=== PATIENT | female | born 2000 | race Caucasian/White ===

== ENCOUNTER 2024-01-08 09:53 | Inpatient (IN) ==
--- NOTE | 2024-01-08 10:07 | Emergency Department Note ---
Impression & Plan Stroke-like symptoms, Neurological symptoms, GBS (Guillain-Brogan syndrome) ED Provider Note NAME: ALVAREZ ZALDIVAR AGE: 23 SEX: M : 2000 ARRIVES VIA: Ambulance INFORMANT: Patient, EMS ED PROVIDER(S): Scott Patterson DO CHIEF COMPLAINT: Weakness HPI: The patient is a 23-year-old male who presented to the emergency department for evaluation of generalized weakness. The patient does not have any significant past medical history. The patient states over the last couple days has been having increasing problems walking. The patient states that he has been having to hold onto the wall because he cannot stand up. He states this occurred approximately 2 days ago. He then started having right sided facial droop. He denies having any new foods. He denies having exposures to any illnesses. He denies having any tick bites. He has not been seen by provider prior to coming to the emergency department. The patient denies having any fever or vomiting. ROS: See above HPI for pertinent positives & negatives. A total of 10 systems reviewed and were otherwise negative. PAST MEDICAL HISTORY: See Below PAST SURGICAL HISTORY: See Below FAMILY HISTORY: See Below SOCIAL HISTORY: See Below HOME MEDICATIONS: See Below ALLERGIES: See Below VITALS: See Below PHYSICAL EXAMINATION: GENERAL: Patient is awake alert in no acute distress patient is resting comfortably and showing no signs of anxiety EYES: The conjunctivae are clear. The pupils are round and reactive. EARS, NOSE, MOUTH AND THROAT: The nose is without any evidence of any deformity. NECK: The neck is nontender and supple. RESPIRATORY: Normal respiratory effort is noted there is no evidence of wheezing rhonchi or rales CARDIOVASCULAR: Regular rate and rhythm noted there no murmurs rubs or gallops normal S1 normal S2. GASTROINTESTINAL: The abdomen is soft. Abdomen is nontender. MUSCULOSKELETAL/EXTREMITIES: There is no evidence of gross deformity full range of motion is noted in the hips and shoulders. SKIN: There is no obvious evidence of any rash. There are no petechiae, pallor or cyanosis noted. NEUROLOGIC: Patient is awake alert and oriented x3. There is a right-sided facial droop which appears to have some forehead sparing. Speech is clear. Patellar tendon reflexes are absent bilaterally. The patient is able to hold each leg off the bed for approximately 5 seconds but they become tremulous. [employer] Director strength is symmetric but diminished and also tremulous in the upper extremities. MEDICAL DECISION MAKING: The patient is a 23-year-old male who has no significant past medical history who presented to the emergency department by ambulance for strokelike symptoms. The patient started having lower extremity weakness over the course of the last few days. The patient had progressive weakness which is now in the upper extremities and also involving the right side of his face. The patient was not made a stroke alert because his symptoms have been ongoing for more than 24 hours. I discussed the patient's laboratory and radiographic studies with him. There was suspicion that this could be Guillain-Beatty syndrome so I discussed the patient's condition with the [facility] neurologist. He was evaluated by neurology in the emergency department. They recommended further testing as an inpatient including MRI. They also recommended a lumbar puncture and then IgG therapy. I discussed the patient's condition with the on-call [facility] hospitalist. They have agreed to evaluate the patient in the emergency department for further management and disposition. Triage Nursing notes reviewed. Prior medical records reviewed Vital Signs: reviewed and remarkable for tachycardia and hypertension. Differential diagnosis: Infection, dehydration, metabolic abnormality, hypo/hyperglycemia, electrolyte disturbance, anemia, hypoxia, cardiac sources, intracerebral event, toxicologic, neurologic, as well as other pathologies. ER treatment provided: See below Diagnostics interpreted by me: ECG: EKG was obtained in the emergency department. My interpretation is sinus tachycardia at 115 bpm. There was no ectopy. Nonspecific T wave abnormalities were noted. No previous tracing was available. Cardiac Monitoring: An order was placed for continuous cardiac monitoring. The monitor shows a rate of 110 bpm with sinus tachycardia. Laboratory studies: As stated above and show below. Imaging studies: See below. Radiographic imaging was reviewed by myself Consultation(s): I discussed this case with Dr. Tobias who is on-call for neurology. I discussed this case with [facility] ED COURSE: Procedures: Lumbar Puncture Indication: Weakness. Verbal consent was obtained after the risks and benefits were explained, including but not limited to headache, bleeding/clotting, scarring, infection, pain, and bone/joint/nerve damage. At this time, the risks of the procedure are less than the risks of NOT performing the procedure. A time out was taken and the correct patient and site identified. The patient was placed in the seated position and the back was prepped with betadine and draped in the standard fashion. The L3 intervertebral space was identified, anesthetized locally with 1% lidocaine without epinephrine, and the spinal needle was inserted through the skin with the bevel parallel to the dural fibers. The needle was carefully advanced into the lumbar cistern and 4 tubes of clear CSF was obtained. Opening pressure was 35 in the seated position. The stylet was replaced and the needle was removed. A bandaid was placed and the patient was placed in the supine position. The patient tolerated the procedure well and there were no complications. Past Med/Surg History Problem List (Updated 01/08/24 @ 15:33 by Scott Patterson DO) GBS (Guillain-Brogan syndrome) (Acute) Stroke-like symptoms (Acute) Neurological symptoms (Acute) Surgical History H/O wisdom tooth extraction History of cholecystectomy Social History (Updated 01/08/24 @ 13:03 by Kelly Leon PA-C) Smoking Status: Never smoker Second Hand Exposure: No; Do You Dip or Chew Tobacco: No; Tobacco Cessation Education Requested by Patient: No Hx Alcohol Use: Yes Hx Substance Use: No Preferred Language: Khmer Communication Ability: Effective Nurse Gynecology Required: No Beliefs That Will Affect Care: None Current Living Situation: Parent Other Information That Helps Us Care for You: No Feels Safe at Home: Yes Safety Concerns: Feels Safe At This Time Gender Identity: Transgender Male Home Meds Home Medications Medication Instructions Recorded Confirmed testosterone cypionate 200 mg/mL 80 mg subcut .[id number] 01/08/24 01/08/24 intramuscular oil Results & Data (ED) Vital Signs Vital Signs - 24 hr 01/08/24 10:00 01/08/24 10:00 01/08/24 10:36 Temperature 37.2 C Temperature Source Oral Pulse Rate 116 H 110 H 128 H Pulse Rate from SpO2 Sensor 110 H 133 H Respiratory Rate 18 24 24 Respiratory Effort / Characteristics Non-Labored Spontaneous Respiratory Depth Normal Blood Pressure 164/104 H 131/103 H 138/111 H Blood Pressure Mean 124 112 120 Pulse Oximetry 94 98 96 Oxygen Delivery Method Room Air Room Air Room Air Sepsis Recent Fever Within 48 Hours No Sepsis New/Unexplained Change in Mental Status N/A Sepsis Action Taken by Nursing No Action Required 01/08/24 11:24 Temperature Temperature Source Pulse Rate 118 H Pulse Rate from SpO2 Sensor Respiratory Rate 15 Respiratory Effort / Characteristics Respiratory Depth Blood Pressure 142/90 H Blood Pressure Mean 107 Pulse Oximetry 97 Oxygen Delivery Method Room Air Sepsis Recent Fever Within 48 Hours Sepsis New/Unexplained Change in Mental Status Sepsis Action Taken by [facility] Medications Current Medication List: was personally reviewed by me Laboratory Data Attestation: I reviewed the patient's lab results. 01/08/24 10:03 01/08/24 10:03 Lab Results 01/08/24 01/08/24 01/08/24 Range/Units 10:03 11:10 11:10 WBC 5.86 (4.8-10.8) K/ul RBC 5.13 (4.70-6.10) M/uL Hgb 14.7 (14.0-18.0) g/dl Hct 43.9 (42.0-52.0) % MCV 85.6 (80.0-100.0) fL MCH 28.7 (25.0-34.0) pg MCHC 33.5 (32.0-36.0) g/dL RDW Std Deviation 40.1 (36.4-46.3) fL RDW Coeff of Fifi 12.9 (11.5-14.5) % Plt Count 181 (130-400) K/uL MPV 10.0 (9.4-12.4) fL Neutrophils % (Manual) 30 % Lymphocytes % (Manual) 31 % Reactive Lymphs % (Man) 31 % Monocytes % (Manual) 8 % Neutrophils # (Manual) 1.76 (1.40-6.50) K/uL Total Absolute Neuts 1.76 (1.4-6.5) K/uL Lymphocytes # (Manual) 1.82 (1.2-3.4) K/uL Reactive Lymphs # 1.82 K/uL Total Abs Lymphocytes 3.63 H (1.2-3.4) K/uL Monocytes # (Manual) 0.47 (0.11-0.59) K/uL RBC Morphology Unremarkable PT 12.0 (9.0-12.0) Seconds INR 1.1 (0.9-1.1) APTT 26 (21-31) Seconds PTT Ratio 1.0 Sodium 137 (136-145) mmol/L Potassium 3.9 (3.5-5.1) mmol/L Chloride 107 (98-107) mmol/L Carbon Dioxide 21 (21-32) mmol/L Anion Gap 9 (3-11) BUN 13 (6-23) mg/dl Creatinine 0.83 (0.6-1.4) mg/dl Est Cr Clr Drug Dosing 143.1 ml/min Est GFR ( Amer) 141.7 ml/min Est GFR (Non-Af Amer) 122.3 ml/min BUN/Creatinine Ratio 15.7 (10-20) Glucose 137 H (70-99(Fasting)) mg/dl Calcium 9.5 (8.6-10.3) mg/dl Magnesium 2.0 (1.7-2.4) mg/dl Total Bilirubin 0.5 (0.2-1.0) mg/dl AST 94 H (13-39) U/L ALT 173 H (7-52) U/L Alkaline Phosphatase 63 (34-104) U/L Total Creatine Kinase 121 (30-223) U/L Troponin I High Sens 13.9 (0-20) pg/ml C-Reactive Protein 0.66 H (0-0.5) mg/dl Total Protein 7.5 (6.0-8.3) gm/dl Albumin 4.4 (3.4-5.0) gm/dl Globulin 3.1 (2.5-4.0) gm/dl Albumin/Globulin Ratio 1.4 (0.9-2) Procalcitonin 0.06 (0-0.5) ng/ml TSH 1.049 (0.300-4.500) uIu/ml Fluid Comment CSF Appearance Clear CSF Color Colorless Xanthrochromic No xanthochromia CSF WBC 2 (0-5) CSF RBC 1 (0-) CSF Cell Count Tube # 3 CSF Chemistry Tube # 1 CSF Glucose 62 (40-70) mg/dl CSF Total Protein 136.6 H Cancelled (15-45) mg/dl Adenovirus (PCR) Not Detected (NotDetected) Anaplasma Smear See Comment Babesia Smear See Comment B. pertussis DNA (PCR) Not Detected (NotDetected) B.parapertussis DNA PCR Not Detected (NotDetected) Lyme Disease Screen Negative (Negative) C. pneumoniae DNA (PCR) Not Detected (NotDetected) Coronavirus OC43 (PCR) Not Detected (NotDetected) Coronavirus HKU1 (PCR) Not Detected (NotDetected) Coronavirus 229E (PCR) Not Detected (NotDetected) SARS-CoV-2 (PCR) Not Detected (NotDetected) Coronavirus NL63 (PCR) Not Detected (NotDetected) Human Metapneumovir PCR Not Detected (NotDetected) Influenza Type A (PCR) Not Detected (NotDetected) Influenza Type B (PCR) Not Detected (NotDetected) M. pneumoniae (PCR) Not Detected (NotDetected) Parainfluenza 1 (PCR) Not Detected (NotDetected) Parainfluenza 2 (PCR) Not Detected (NotDetected) Parainfluenza 3 (PCR) Not Detected (NotDetected) Parainfluenza 4 (PCR) Not Detected (NotDetected) RSV (PCR) Not Detected (NotDetected) Entero/Rhino (PCR) Not Detected (NotDetected) Administered Medications Discontinued Medications Gadobutrol (Gadobutrol 65ml Vial) 8.5 ml IV ONCE ONE Stop: 01/08/24 14:08 Last Admin: 01/08/24 14:08 Dose: 8.5 ml Documented By: GWENDOLYN Sodium Chloride (Nss) 1,000 mls @ 999 mls/hr IV .Q1H1M ONE Stop: 01/08/24 12:15 Last Infusion: 01/08/24 12:44 Dose: Infused Documented By: Admin: 01/08/24 11:26 Dose: 999 mls/hr Documented By: DENNIS Imaging Data Attestation: I personally reviewed and interpreted this imaging study as follows: My Impression: 1 view chest x-ray was obtained in the emergency department. My interpretation is no free air or definite infiltrate, final report below. CT of the brain was obtained in the emergency department. My interpretation was no intracranial hemorrhage or mass effect, final report below. Radiologist's Impression: Chest X-Ray 01/08/24 10:02 XR chest 1V portable HISTORY: 23 years-old Male weakness acute weakness COMPARISON: None TECHNIQUE: AP view of the chest FINDINGS: Cardiomediastinal and hilar silhouettes appear normal. No pneumothorax, pleural effusion or airspace consolidation. The bones appear intact. IMPRESSION: Normal exam. ACT 112: Negative or not required by law. The above report was generated using voice recognition software. It may contain grammatical, syntax or spelling errors. Electronically signed by: Zach Maradiaga M.D. 01/08/2024 10:[address] 01/08/24 10:02 CT head/brain wo con CLINICAL HISTORY: weakness Technique: Contiguous axial CT images of the head were acquired from the base of the skull to the vertex without intravenous contrast administration. Images were viewed in brain, subdural and bone windows. Automated dose lowering techniques and/or adjustment according to patient size were utilized for this exam. Comparison: None available at the time of this dictation. Findings: The ventricles, basal cisterns, and cerebral sulci are normal. There is no acute intracranial hemorrhage or evidence of acute territorial infarction. Neither mass effect, shift of the midline structures, nor abnormal extra-axial fluid collections are shown. Imaged portions of the paranasal sinuses and mastoid air cells are clear. The orbits appear normal. There are no acute fractures of the calvaria or scalp swelling. Impression: No acute intracranial hemorrhage, no evidence of acute territorial infarction or other acute intracranial disease process. ACT 112: Negative or not required by law. Electronically signed by: Yosef Martinez M.D. 01/08/2024 10:39 AM Discharge Plan Visit Data Chief Complaint: Illness Stated Complaint: STROKE SX ED Provider: Scott Patterson Discharge Problem: Stroke-like symptoms, Neurological symptoms, GBS (Guillain-Brogan syndrome) Patient Disposition: Admitted As Inpatient Discharge Instructions Interventions: ED Discharge Assessment Last Done: 01/08/24 13:27
--- NOTE | 2024-01-08 10:40 | CT Scan Report ---
CT head/brain wo con CLINICAL HISTORY: weakness Technique: Contiguous axial CT images of the head were acquired from the base of the skull to the juan alberto kvng without intravenous contrast administration. Images were viewed in brain, subdural and bone [facility]. Automated dose lowering techniques and/or adjustment according to patient size were utilized for this exam. Comparison: None available at the time of this dictation. Findings: The ventricles, basal cisterns, and cerebral sulci are normal. There is no acute intracranial hemorrh age or evidence of acute territorial infarction. Neither mass effect, shift of the midline structures , nor abnormal extra-axial fluid collections are shown. Imaged portions of the paranasal sinuses and mastoid air cells are clear. The orbits appear normal. There are no acute fractures of the calvaria or scalp swelling. Impression: No acute intracranial hemorrhage, no evidence of acute territorial infarction or other acute intracra nial disease process. ACT 112: Negative or not required by law. Electronically signed by: Yosef Martinez M.D. 01/08/2024 10:39 AM
[2024-01-08 10:45] LABS: Mean Corpuscular Hemoglobin 28.7 pg (25.0-34.0); Mean Corpuscular Hgb Conc 33.5 g/dL (32.0-36.0); Mean Corpuscular Volume 85.6 fL (80.0-100.0); Platelet Count 181 K/uL (130-400); RDW Coefficient of Variation 12.9 % (11.5-14.5); RDW Standard Deviation 40.1 fL (36.4-46.3); White Blood Count 5.86 K/ul (4.8-10.8)
--- NOTE | 2024-01-08 10:45 | XRay Report ---
XR chest 1V portable HISTORY: 23 years-old Male weakness acute weakness COMPARISON: None TECHNIQUE: AP view of the chest FINDINGS: Cardiomediastinal and hilar silhouettes appear normal. No pneumothorax, pleural effusion or airspace consolidation. The bones appear intact. IMPRESSION: Normal exam. ACT 112: Negative or not required by law. The above report was generated using voice recognition software. It may contain grammatical, syntax o r spelling errors. Electronically signed by: Zach Maradiaga M.D. 01/08/2024 10:44 AM
[2024-01-08 11:01] LABS: Albumin Level 4.4 gm/dl (3.4-5.0); Bilirubin,Total 0.5 mg/dl (0.2-1.0); Calcium 9.5 mg/dl (8.6-10.3); Potassium 3.9 mmol/L (3.5-5.1)
[2024-01-08 11:05] LABS: Procalcitonin 0.06 ng/ml (0-0.5)
[2024-01-08 11:07] LABS: Albumin Globulin Ratio 1.4 (0.9-2); BUN Creatinine Ratio 15.7 (10-20); C Reactive Protein 0.66 mg/dl (0-0.5); Creatinine Clr Calc Pharmacy 143.1 ml/min; Globulin 3.1 gm/dl (2.5-4.0); Total Protein 7.5 gm/dl (6.0-8.3)
--- NOTE | 2024-01-08 11:15 | Neurology Consultation ---
Date of Consultation January 08, 2024 Assessment & Plan (1) Weakness: History of Present Illness History of Present Illness pt feeling weakness in legs since 5 days ago with heavy feeling in his legs and some tingling in his legs. no back pain or spasms. his weakness slowly getting worse and he feels unsteady now walking. no recent injury or illness or travel. no viral infection or vaccines. no prior hx of similar event and no past hx of having GBS or autoimmune disorders. no GI symptom, no diarrhea. ED admission note: The patient is a 23-year-old male who presented to the emergency department for evaluation of generalized weakness. The patient does not have any significant past medical history. The patient states over the last couple days has been having increasing problems walking. The patient states that he has been having to hold onto the wall because he cannot stand up. He states this occurred approximately 2 days ago. He then started having right sided facial droop. He denies having any new foods. He denies having exposures to any illnesses. He denies having any tick bites. He has not been seen by provider prior to coming to the emergency department. The patient denies having any fever or vomiting. Patient History Social History Smoking Status: Never smoker Preferred Language: Colombian Feels Safe at Home: Yes Exam (Neuro) Physical Exam: HEENT: normocephalic grossly Neuro: Mental: AOx4, fluent speech, normal comprehension, no apraxia, no L/R confusion, no neglect CN: PERRL, Full EOM, symmetric face, midline T/U/P, grossly full ROM neck Motor: No abnormal movements, normal tone, 5/5 t/o bilaterally upper limbs. Lower limbs: b/l 4/5 hamstrings, 5-/5 knee extension, 5/5 distally b/l. Sens: intact to touch b/l , noted for slight decrease to vibration distal toes b/l. intact proprioception in toes. Coord: intact DTR: 2+ sym b/l upper limbs. 1+ at the knee b/l, trace at the ankles b/l. toes down b/l. Gait: intact grossly with some difficulty with tandem. 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 Recommendations: -LP to look for albuminocytologic dissoc iation. do also check for lyme PCR and CMV, EBV PCT titer. mri brain and c and T spine with TRISHA send serum for anti-GM1 IgG and anti-GD1a antibodies. do start empiric tx with IVIG 0.4g/kg per day for 5 days close monitoring for pulmonary distress close watch for dysautonomia plenty of IVF physical therapy consult no need for EMG as it is too early to see changes. Chart reviewed I have spent more than 50% educating patient about potential diagnosis and neurological evaluation and coordinating care with patient's treatment team. Total time spent (including chart review and coordination of care): 60 min (this includes chart review). Results & Data Vital Signs (Past 12 Hours) Vital Signs Temp Pulse Resp BP Pulse Ox O2 Del Method 01/08/24 10:36 128 H 24 138/111 H 96 Room Air 01/08/24 10:00 110 H 24 131/103 H 98 Room Air 01/08/24 10:00 37.2 C 116 H 18 164/104 H 94 Room Air PG Care Time/CCT Total # of Minutes Spent Total Time Spent with Patient: Total time spent is greater than 50% in coordination of care (as documented) at patient's floor/unit and/or counseling patient: Coding Level of Care Code 14600 IN/OBS CONSULT LVL 4,60M Diagnoses Weakness R53.1
[2024-01-08 11:18] LABS: INR 1.1 (0.9-1.1); Partial Thromboplastin Time 26 Seconds (21-31)
[2024-01-08 11:20] LABS: Thyroid Stimulating Hormone 1.049 uIu/ml (0.300-4.500)
[2024-01-08] MEDS: SODIUM CHLORIDE 0.9% 1,000 ML IV ONE (11:26)
[2024-01-08 11:30] LABS: Lyme Screen Rflx Confirmation Negative (Negative)
[2024-01-08 11:39] LABS: Total Protein CSF 136.6 mg/dl (15-45)
[2024-01-08 11:43] LABS: ALC (manual) 3.63 K/uL (1.2-3.4); ANC (manual) 1.76 K/uL (1.4-6.5); Lymphocytes # (manual) 1.82 K/uL (1.2-3.4); Lymphocytes % (manual) 31 %; Monocytes # (manual) 0.47 K/uL (0.11-0.59); Monocytes % (manual) 8 %; Neutrophils # (manual) 1.76 K/uL (1.40-6.50); Neutrophils % (manual) 30 %; RBC Morphology Unremarkable; Reactive Lymphocytes # (manual) 1.82 K/uL; Reactive Lymphocytes % (manual) 31 %
[2024-01-08 11:47] LABS: Adenovirus PCR Not Detected (NotDetected); Bordetella parapertussis PCR Not Detected (NotDetected); Bordetella pertussis PCR Not Detected (NotDetected); Chlamydia pneumoniae PCR Not Detected (NotDetected); Coronavirus 229E PCR Not Detected (NotDetected); Coronavirus CoV-2 (COVID19)PCR Not Detected (NotDetected); Coronavirus HKU1 PCR Not Detected (NotDetected); Coronavirus NL63 PCR Not Detected (NotDetected); Coronavirus OC43PCR Not Detected (NotDetected); Human Metapneumovirus PCR Not Detected (NotDetected); Influenza A PCR Not Detected (NotDetected); Influenza B PCR Not Detected (NotDetected); Mycoplasma pneumoniae PCR Not Detected (NotDetected); Parainfluenza Virus 1 PCR Not Detected (NotDetected); Parainfluenza Virus 2 PCR Not Detected (NotDetected); Parainfluenza Virus 3 PCR Not Detected (NotDetected); Parainfluenza Virus 4 PCR Not Detected (NotDetected); Respiratory Syncytial VirusPCR Not Detected (NotDetected); Rhinovirus/Enterovirus PCR Not Detected (NotDetected)
[2024-01-08 11:47] LABS: Appearance CSF Clear; CSF Count Tube # 3; CSF Xanthrochromic No xanthochromia; Color CSF Colorless; Red Blood Cell CSF Manual 1 (0-); White Blood Cell CSF Manual 2 (0-5)
--- NOTE | 2024-01-08 11:49 | History & Physical Report ---
Date of Service January 08, 2024 Assessment & Plan (1) Neurological symptoms: Yadi Bunch is a 23y/o M with no significant PMHx who presented to the ED via EMS for evaluation of leg weakness and right-sided facial numbness. According to Dr. Patterson, patient was experiencing significant ambulatory difficulty as a result of increasing b/l leg weakness. Also with right-sided facial numbness that started today. Initial presentation ultimately concerning for Guillain- Elma syndrome (GBS) after speaking with Dr. Patterson at time of sign-out. [facility] Neurology was therefore consulted by Dr. Patterson prior to sign-out --> Dr. Tobias saw and evaluated the patient in the ED. He is agreeable that this patient's presentation is certainly concerning for GBS. Neurological Symptoms C/F Guillain-Elma Syndrome History as per above and HPI. No leukocytosis, no electrolyte abnormalities. Mild transaminitis - AST 94, ALT 173. CRP slightly elevated. Procalcitonin negative. RVP negative. Lyme negative. Additional tick-borne illness testing pending. UA, urine tox pending. EKG w/o ischemic changes, sinus tachycardia noted. CXR negative. Head CT negative. Troponin negative. LP done in ED. CSF analysis with elevated total protein of 136.6, normal WBC count. Neurology consulted as per above. Additional work-up recommendations from neurology: * CMV titers pending. EBV titers pending. * MRI brain, C-spine and T-spine w/wo con pending. * Serum anti-GM1 IgG and anti-GD1a antibodies pending. * Will start patient on empiric tx with IVIG 0.4gm/kg per day x 5 days. Continuous monitoring for respiratory distress, dysautonomia. Will hold on aggressive BP control at this time per discussion with neurology. Continue IVF therapy with LR's @ 60cc/hr x 2 bags. PT/OT evals. Dysphagia screening pending. Speech therapy eval pending. NPO except sips/chips until evaluated by speech therapy. DVT Prophylaxis: SCDs/TEDs for now. Code Status: FULL CODE PCP: Alyssia Murray MD Disposition: Admit to PCU/Telemetry Patient seen in collaboration with Dr. Mejia. Please see addendum. I spent a total of 60 minutes coordinating, documenting, and providing care for this patient excluding time spent in the performance of separately billed services. This included personally reviewing all current laboratories and imaging studies, medical reconciliation, outpatient chart review and discussion with specialists. This chart was completed in part utilizing Speech Voice Recognition Software. Grammatical errors, random word insertions, pronoun errors, and incomplete sentences are an occasional consequence of this system due to software limitations, ambient noise, and hardware issues. Any formal questions or concerns about the content, text, or information contained within the body of this dictation should be directly addressed to the provider for clarification. History of Present Illness Chief Complaint: Leg Weakness, R-Sided Facial Numbness Primary Care Provider: Alyssia Murray MD Didier Bunch is a 23y/o transgender M with no significant PMHx who presented to the ED via EMS for evaluation of leg weakness and right-sided facial numbness. History obtained from patient, discussion with ED provider/specialist and associated chart review. According to Dr. Patterson, patient was experiencing significant ambulatory difficulty as a result of increasing b/l leg weakness. Also with right-sided facial numbness that started today. Initial presentation ultimately concerning for Guillain-Elma syndrome (GBS) after speaking with Dr. Patterson at time of sign-out. [facility] Neurology was therefore consulted by Dr. Patterson prior to sign-out --> Dr. Tobias saw and evaluated the patient in the ED. He is agreeable that this patient's presentation is certainly concerning for GBS. Lumbar puncture was therefore ordered and performed in the ED. Will ultimately proceed with further work-up as outlined in the plan to either rule-in or rule- out GBS. Patient seen with Dr. Mejia. Patient's father present as bedside. Patient reports feeling "fatigue" in his legs on Friday. Also had a headache. Has been experiencing significant progressive difficulty with walking. Numbness/tingling in both legs distally from the thigh region. Woke up this morning with right- sided facial numbness. No chest pain, SOB or cough. No abdominal pain or N/V. No reported fevers. Has never had any symptoms like this before. No smoking history. Patient is transgender - currently on testosterone therapy. Not on any other medications. Rare alcohol use. No recreational drug use. No recent diarrhea or viral illness. No recent vaccinations or travel. Allergies Allergy/AdvReac Type Severity Reaction Status Date / Time No Known Allergies Allergy Verified 01/08/24 15:43 Home Medications Medication Instructions Recorded Confirmed Type testosterone cypionate 200 mg/mL 80 mg subcut .1XWEEK 01/08/24 01/08/24 History intramuscular oil Past Med/Surg History Problem List (Updated 01/08/24 @ 15:33 by Scott Patterson DO) GBS (Guillain-Elma syndrome) (Acute) Stroke-like symptoms (Acute) Neurological symptoms (Acute) Surgical History H/O wisdom tooth extraction History of cholecystectomy Family History (Updated 01/08/24 @ 15:34 by Kelly Leon PA-C) Father Celiac disease Social History (Updated 01/08/24 @ 13:03 by Kelly Leon PA-C) Smoking Status: Never smoker Second Hand Exposure: No; Do You Dip or Chew Tobacco: No; Tobacco Cessation Education Requested by Patient: No Hx Alcohol Use: Yes Hx Substance Use: No Preferred Language: Georgian Communication Ability: Effective Dampproofer Required: No Beliefs That Will Affect Care: None Current Living Situation: Parent Other Information That Helps Us Care for You: No Feels Safe at Home: Yes Safety Concerns: Feels Safe At This Time Gender Identity: Transgender Male Review of Systems Review of Systems: At least ten systems reviewed and negative, except as noted in the HPI. Physical Exam Physical Exam: Please refer to Dr. Mejia's addendum for physical examination findings. Results & Data Results & Data Vital Signs (Past 12 Hours) Vital Signs Temp Pulse Resp BP Pulse Ox O2 Del Method 01/08/24 11:24 118 H 15 142/90 H 97 Room Air 01/08/24 10:36 128 H 24 138/111 H 96 Room Air 01/08/24 10:00 110 H 24 131/103 H 98 Room Air 01/08/24 10:00 37.2 C 116 H 18 164/104 H 94 Room Air Laboratory Results Short CBC 01/08/24 Range/Units 10:03 WBC 5.86 (4.8-10.8) K/ul Hgb 14.7 (14.0-18.0) g/dl Hct 43.9 (42.0-52.0) % Plt Count 181 (130-400) K/uL BMP 01/08/24 10:03 Sodium 137 Potassium 3.9 Chloride 107 Carbon Dioxide 21 BUN 13 Creatinine 0.83 Glucose 137 H Calcium 9.5 Cardiac Enzymes 01/08/24 Range/Units 10:03 Total Creatine Kinase 121 (30-223) U/L Liver Function 01/08/24 Range/Units 10:03 Total Bilirubin 0.5 (0.2-1.0) mg/dl AST 94 H (13-39) U/L ALT 173 H (7-52) U/L Alkaline Phosphatase 63 (34-104) U/L Albumin 4.4 (3.4-5.0) gm/dl Diagnostic Findings Chest X-Ray 01/08/24 10:02 XR chest 1V portable HISTORY: 23 years-old Male weakness acute weakness COMPARISON: None TECHNIQUE: AP view of the chest FINDINGS: Cardiomediastinal and hilar silhouettes appear normal. No pneumothorax, pleural effusion or airspace consolidation. The bones appear intact. IMPRESSION: Normal exam. ACT 112: Negative or not required by law. The above report was generated using voice recognition software. It may contain grammatical, syntax or spelling errors. Electronically signed by: Zach Maradiaga M.D. 01/08/2024 10:[address] 01/08/24 10:02 CT head/brain wo con CLINICAL HISTORY: weakness Technique: Contiguous axial CT images of the head were acquired from the base of the skull to the vertex without intravenous contrast administration. Images were viewed in brain, subdural and bone windows. Automated dose lowering techniques and/or adjustment according to patient size were utilized for this exam. Comparison: None available at the time of this dictation. Findings: The ventricles, basal cisterns, and cerebral sulci are normal. There is no acute intracranial hemorrhage or evidence of acute territorial infarction. Neither mass effect, shift of the midline structures, nor abnormal extra-axial fluid collections are shown. Imaged portions of the paranasal sinuses and mastoid air cells are clear. The orbits appear normal. There are no acute fractures of the calvaria or scalp swelling. Impression: No acute intracranial hemorrhage, no evidence of acute territorial infarction or other acute intracranial disease process. ACT 112: Negative or not required by law. Electronically signed by: Yosef Martinez M.D. 01/08/2024 10:39 AM Medications Administered Sodium Chloride (Nss) 1,000 mls @ 999 mls/hr IV .Q1H1M ONE Stop: 01/08/24 12:15 Last Admin: 01/08/24 11:26 Dose: 999 mls/hr Documented By: DENNIS Code Status & VTE Plan Code Status FULL CODE VTE Prophylaxis Plan VTE Prophylaxis will be ordered: Yes Supervising Physician Co-Signing Physician Notes Patient is a 23-year-old transgender male on testosterone injections no other significant past medical history presents with history of right facial droop/numbness and worsening lower extremity weakness resulting in ambulatory dysfunction. Patient states that his leg weakness has been gradually worsening since Friday and is also associated with a headache, numbness and tingling of legs. He started to notice facial numbness on right side today and developed a facial droop which prompted him to go around to ED for further evaluation. Patient had lumbar puncture in ED suggestive of GBS. Neurology evaluated as well and suggested to start on IVIG's. Patient denies any chest pain, shortness of breath, nausea, vomiting, abdominal pain, dysuria, hematuria. Please review HPI for complete details of presentation. I personally reviewed blood work and imaging studies. Imaging studies showed no signs of acute CVA. Normal TSH, glucose elevated at 137. Drug screen negative. Mild transaminitis noted. Urine analysis suggestive microscopic hematuria. 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 Patient's care is coordinated with Kelly Leon PA-C. I have reviewed the advanced practitioner's documentation, and I agree with plan of care. Please refer to the documentation above for details of patient's presentation and for discussion of other issues. I spent a total [id number] coordinating, documenting, and providing care for this patient excluding time spent in the performance of separately billed services.
[2024-01-08 13:14] LABS: Appearance Urine Clear (Clear); Bacteria Urine Automated None Seen (None Seen); Bilirubin Urine Negative (Negative); Blood Urine 2+ (Negative); Cast Urine Automated 0-2 /lpf (0-2); Color Urine Yellow; Epithelial Cell Urine Auto 0-2 /hpf (0-2); Glucose Urine UA Negative (Negative); Ketones Urine Negative (Negative); Leukocyte Esterase Urine 2+ (Negative); Nitrite Urine Negative (Negative); Protein Urine Negative (Negative); RBC Urine Automated >20 /hpf (0-2); Urobilinogen Urine Negative (Negative)
[2024-01-08 13:21] LABS: Amphetamines+Metham, Urine Neg (Neg); Barbiturates, Urine Neg (Neg); Benzodiazepine, Urine Neg (Neg); Cocaine, Urine Neg (Neg); Fentanyl, Urine Neg (Neg); MDMA (Ecstacy), Urine Neg (Neg); Marijuana, Urine Neg (Neg); Methadone, Urine Neg (Neg); Opiate, Urine Neg (Neg); Phencyclidine, Urine Neg (Neg)
[2024-01-08] MEDS: GADOBUTROL 65ML VIAL IV ONE (14:08)
--- NOTE | 2024-01-08 14:45 | Electrocardiogram Report ---
Test Reason : Blood Pressure : */* mmHG Vent. Rate : 115 BPM Atrial Rate : 115 BPM P-R Int : 128 ms QRS Dur : 80 ms QT Int : 312 ms P-R-T Axes : 62 37 -16 degrees QTcB Int : 431 ms Sinus tachycardia T wave abnormality, consider inferior ischemia Abnormal ECG No previous ECGs available Confirmed by Scott Novoa ([id number]) on 01/08/2024 2:45:15 PM Referred By: Confirmed By: Scott Novoa
[2024-01-08] MEDS ORDERED: IMMUNE GLOBULIN (HUMAN) SOLN IV ONE (14:55)
[2024-01-08] MEDS ORDERED: ONDANSETRON INJ 2 MG/ML 2 ML VIAL IV PRN (14:55)
--- NOTE | 2024-01-08 14:55 | Magnetic Resonance Report ---
CLINICAL HISTORY: Stroke-like sx, concern for GBS TECHNIQUE: MRI of the cervical spine is performed utilizing various T1 and T2 sequences in the axial and sagittal planes. IV contrast was administered for this examination. Comparison: None available at the time of this dictation. FINDINGS: The alignment is anatomical. Disks are normal in height and signal. C2-C3: Unremarkable. C3-C4: Unremarkable. C4-C5: Unremarkable. C5-C6: Unremarkable. C6-C7: Unremarkable. C7-T1: Unremarkable. The spinal ligaments are intact, without evidence of disruption or abnormal signal intensity. The spi nal cord is normal in signal intensity and there is no evidence of cord contusion. There is no eviden ce of an extradural, intradural, extramedullary or intramedullary lesion. Visualized soft tissues are normal. Visualized brain parenchyma is normal. IMPRESSION: No acute abnormalities and in particular no evidence of demyelination or stenosis. ACT 112: Negative or not required by law. Electronically signed by: Yosef Martinez M.D. 01/08/2024 2:54 PM
--- NOTE | 2024-01-08 14:55 | Magnetic Resonance Report ---
MR thoracic spine wo/w con HISTORY: 23 years-old Male Stroke-like sx, concern for GBS acute mid back pain with reported acute s trokelike symptoms, facial and upper extremity numbness COMPARISON: Brain and cervical spine MRI studies of same day TECHNIQUE: Multiplanar multisequence MRI of the thoracic spine was obtained with and without IV contr ast. FINDINGS: There is mild multilevel disc space narrowing of the mid thoracic spine. No acute fracture, subluxati on, endplate erosion or marrow replacing process. No significant bone marrow edema. There is normal s ignal within the imaged lower cervical and thoracic spinal cord. No significant central canal or fora iggy narrowing. Study is motion degraded. No abnormal enhancement. IMPRESSION: 1. Unremarkable MRI of the thoracic spine, specifically there is normal morphology and signal of the thoracic spinal cord. 2. No abnormal enhancement. ACT 112: Negative or not required by law. The above report was generated using voice recognition software. It may contain grammatical, syntax o r spelling errors. Electronically signed by: Zach Maradiaga M.D. 01/08/2024 2:54 PM
--- NOTE | 2024-01-08 15:02 | Magnetic Resonance Report ---
MRI OF THE BRAIN WITHOUT AND WITH IV CONTRAST CLINICAL HISTORY: Stroke-like sx, concern for GBS COMPARISON STUDY: Head CT performed earlier today. TECHNIQUE: Utilizing a 1.5 Tasneem magnet and dedicated coil, multiplanar, multiecho imaging of the br ain was performed pre and postcontrast administration. IV administration of 8.5 mL of Gadavist contr ast was uneventful. FINDINGS: There are no foci of restricted diffusion to suggest acute infarct. No acute intracranial h emorrhage, midline shift or mass effect is present. Brain volume is normal. Ventricular system is nor mal. Basal cisterns are patent. Flow-voids for the major intracranial vessels are present. There is n o intracranial mass or pathologic enhancement. No parenchymal signal abnormality is identified. Romulo rial signal is normal. There is no evidence for sinusitis. There is no mastoid fluid. Orbits are unre markable. IMPRESSION: Unremarkable MRI of the brain. ACT 112: Negative or not required by law. Electronically signed by: Alfred Rivera M.D. 01/08/2024 3:00 PM
[2024-01-08] MEDS: LACTATED RINGER'S 1,000 ML IV SCH (15:29)
[2024-01-08] MEDS ORDERED: Patient's ALLERGY Info needs ENTERED SCH (15:30)
[2024-01-08] MEDS: Octagam 10% IVIG 5 gram bottle IV SCH (16:36)
[2024-01-08] MEDS: cefTRIAXone SODIUM 1,000 MG/50 ML BAG IV SCH (17:13)
[2024-01-08] MEDS: Patient's ALLERGY Info needs ENTERED SCH (17:41)
[2024-01-08] MEDS: Octagam 10% IVIG 20 gram bottle IV SCH (18:09)
[2024-01-09] MEDS: traMADol HCL 50 MG TABLET PO PRN (06:09)
[2024-01-09 07:01] LABS: Mean Corpuscular Hgb Conc 34.4 g/dL (32.0-36.0); Mean Corpuscular Volume 84.3 fL (80.0-100.0); Mean Platelet Volume 9.7 fL (9.4-12.4); Platelet Count 174 K/uL (130-400); RDW Standard Deviation 39.8 fL (36.4-46.3); White Blood Count 3.77 K/ul (4.8-10.8)
[2024-01-09 07:18] LABS: Albumin Globulin Ratio 1.1 (0.9-2); Albumin Level 4.2 gm/dl (3.4-5.0); BUN Creatinine Ratio 12.3 (10-20); Bilirubin,Total 0.6 mg/dl (0.2-1.0); Calcium 9.5 mg/dl (8.6-10.3); Chol HDL Ratio 4.2 (0-5); Globulin 3.9 gm/dl (2.5-4.0); Magnesium 1.9 mg/dl (1.7-2.4); Phosphorus 3.6 mg/dl (2.5-4.9); Potassium 3.8 mmol/L (3.5-5.1); Total Protein 8.1 gm/dl (6.0-8.3)
[2024-01-09 07:46] LABS: Estimated Average Glucose 117 mg/dl; Hemoglobin A1C 5.7 % (4.5-5.6)
--- NOTE | 2024-01-09 08:55 | Hospitalist Progress Note ---
Date of Service January 09, 2024 Assessment & Plan (1) Neurological symptoms: Yadi Bunch is a 23y/o M with no significant PMHx who presented to the ED via EMS for evaluation of leg weakness and right-sided facial numbness. 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 Also reported right-sided facial droop. CRP slightly elevated. RVP negative. Lyme negative. Additional tick-borne illness testing pending. EKG w/o ischemic changes, sinus tachycardia noted. Chest x-rayno acute finding CT head without contrastno acute intracranial hemorrhage, territorial infarction or acute intracranial disease Brain MRI, cervical spine MRI and thoracic spine MRIno acute findings CSF analysis with elevated total protein of 136.6, normal WBC count. Neurology consulted Additional work-up recommendations from neurology: * CMV titers pending. EBV titers pending. * Serum anti-GM1 IgG and anti-GD1a antibodies pending. * on empiric tx with IVIG 0.4gm/kg per day x 5 days as per Neurology( Started on 01/08/2024) * Also started on Prednisone for possible Gray's palsy, 60mg X 3 days--> 40mg X 3days and 20mg X 3 days. Continuous monitoring for respiratory distress, dysautonomia. Continue IVF therapy with LR's @ 60cc/hr x 2 bags. PT/OT evals. Speech therapy evaluation done- on regular diet Possible UTI- Ruled out Empirically placed on ceftriaxone will dc antiboitics Transaminitis Possibly due to Guillain-Beatty syndrome, testosterone injection Will obtain ultrasound liver Monitor Prediabetes HbA1c 5.7% Continue lifestyle measures DVT Prophylaxis: SCDs/TEDs for now. Code Status: FULL CODE PCP: Alyssia Murray MD Disposition: Admit to PCU/Telemetry Discussed with patient's dad at bedside. Answered questions/queries. Time spent evaluating patient, direct bedside care, chart review, placing orders, interpretation of diagnostic studies, discussion with consultants, patient, and family members, as well as other required patient management activities is 50 minutes This chart was completed in part utilizing Speech Voice Recognition Software. Grammatical errors, random word insertions, pronoun errors, and incomplete sentences are an occasional consequence of this system due to software limitations, ambient noise, and hardware issues. Any formal questions or concerns about the content, text, or information contained within the body of this dictation should be directly addressed to the provider for clarification. Admission and Anticipated Discharge Date Admission Date: January 08, 2024 Subjective Patient seen and examined at bedside. Comfortable; not in distress. Denies fever, chills, chest pain, shortness of breath, abdominal pain or urinary symptoms. No significant overnight events Review of Systems Review of Systems: All systems reviewed & are unremarkable except as noted in Subjective Physical Exam Physical Exam: Constitutional: WD/WN, vitals as above, NAD, sitting up in bed, pleasant, conversing easily Respiratory: normal respiratory effort, lungs clear to auscultation, no wheeze, rales, rhonchi. Normal insp/exp effort, no accessory muscle use Cardiovascular: RRR, no murmur, no edema Vessels: no JVD or carotid bruit Chest: normal inspection of chest Abdomen: normal bowel sounds, soft, nontender, no hepatosplenomegaly Musculoskeletal: no cyanosis or clubbing, extremities motor strength 5/5 Skin: no rashes, warm and dry normal turgor Neurologic: PERRL, EOMI, accommodation nl, Right sided facial nerve palsy, strength intact in b/l LE and UE Psychiatric: A+Ox3, euthymic affec Results & Data Results & Data Vital Signs (Past 12 Hours) Vital Signs Temp Pulse Pulse Resp BP Pulse Ox O2 Del Method 01/09/24 07:16 37.0 C 112 H 16 127/85 96 Room Air 01/09/24 03:11 37.1 C 107 H 18 142/89 H 95 Room Air 01/08/24 23:10 99 H 01/08/24 22:42 36.8 C 83 18 118/75 98 Room Air
--- NOTE | 2024-01-09 09:49 | Neurology Progress Note ---
Date of Service January 09, 2024 Assessment & Plan (1) GBS (Guillain-Rector syndrome): Admission and Anticipated Discharge Date Admission Date: January 08, 2024 Subjective pt this morning feeling ok. no further weakness but does have rt face weakness that is worse this morning. no swallowing problem or respiratory distress. no clear dysautonomic symptoms. Results & Data Vital Signs (Past 12 Hours) Vital Signs Temp Pulse Pulse Resp BP Pulse Ox O2 Del Method 01/09/24 07:16 37.0 C 112 H 16 127/85 96 Room Air 01/09/24 03:11 37.1 C 107 H 18 142/89 H 95 Room Air 01/08/24 23:10 99 H 01/08/24 22:42 36.8 C 83 18 118/75 98 Room Air Exam (Neuro) Physical Exam: Neuro: Mental: AOx4, fluent speech, normal comprehension, no apraxia, no neglect CN: PERRL, Full EOM, rt entire face weakness, midline T/U/P Motor: No abnormal movements, 4+/5 b/l hamstrings b/l. Coord: intact Gait: intact grossly Impression: 23 yo male (transgender) with CSF and clinic findings consistent with Guillain-barre syndrome and also rt face benitez's palsy. Recommendations: continue IVIG as planned do start prednisone oral. 60mg po daily for 3 days and 40mg po daily for 3 days and 20mg daily for 3 days and stop. eye protection with eye patch at night when sleeping and eye drops prn. physical therapy eval continue close monitoring for respiratory and autonomic dysfunction. Chart reviewed I have spent more than 50% educating patient about potential diagnosis and neurological evaluation and coordinating care with patient's treatment team. Total time spent (including chart review and coordination of care): 50 min (this includes chart review). PG Care Time/CCT Total # of Minutes Spent Total Time Spent with Patient: Total time spent is greater than 50% in coordination of care (as documented) at patient's floor/unit and/or counseling patient: Coding Level of Care Code 01686 SUB INP/OBS CARE 3/50MIN Diagnoses GBS (Guillain-Rector syndrome) G61.0
[2024-01-09 09:51] LABS: ALC (manual) 2.75 K/uL (1.2-3.4); ANC (manual) 0.79 K/uL (1.4-6.5); Lymphocytes # (manual) 1.36 K/uL (1.2-3.4); Lymphocytes % (manual) 36 %; Monocytes # (manual) 0.23 K/uL (0.11-0.59); Monocytes % (manual) 6 %; Neutrophils # (manual) 0.79 K/uL (1.40-6.50); Neutrophils % (manual) 21 %; Reactive Lymphocytes # (manual) 1.39 K/uL; Reactive Lymphocytes % (manual) 37 %
[2024-01-09] MEDS: predniSONE 20 MG TAB PO SCH (11:04)
[2024-01-09] MEDS: ARTIFICIAL TEARS OPB SCH (11:04)
--- NOTE | 2024-01-09 13:55 | Electrocardiogram Report ---
Test Reason : Blood Pressure : */* mmHG Vent. Rate : 98 BPM Atrial Rate : 98 BPM P-R Int : 128 ms QRS Dur : 82 ms QT Int : 336 ms P-R-T Axes : 53 55 10 degrees QTcB Int : 428 ms Normal sinus rhythm Normal ECG When compared with ECG of 08-Jan-2024 10:01, No significant change was found Confirmed by Scott Novoa ([id number]) on 01/09/2024 1:54:29 PM Referred By: REFERRED SELF Confirmed By: Scott Novoa
[2024-01-09] MEDS: Octagam 10% IVIG 5 gram bottle IV SCH (15:53)
[2024-01-09] MEDS: Octagam 10% IVIG 10 gram bottle IV SCH (16:40)
[2024-01-09] MEDS: Octagam 10% IVIG 20 gram bottle IV SCH (18:29)
--- NOTE | 2024-01-10 04:02 | Ultrasound Report ---
Exam(s): US LIVER EXAM: US Abdomen Limited, Right Upper Quadrant CLINICAL HISTORY: elevated transaminitis. TECHNIQUE: Real-time ultrasound of the right upper quadrant with image documentation. COMPARISON: No relevant prior studies available. FINDINGS: Liver: 16.4 cm. No mass. No intrahepatic bile duct dilation. Gallbladder: Unremarkable. No gallstones. Common bile duct: 3.1 mm. No stones. No dilation. Pancreas: Unremarkable as visualized. Pancreatic tail obscured by bowel gas. Right kidney: 10.8 cm length. No stones. No solid mass. No hydronephrosis. IMPRESSION: No acute abnormality. Electronically signed by: Nolan Oneal M.D. 01/10/24 04:01 AM
[2024-01-10 06:28] LABS: Mean Corpuscular Hemoglobin 28.7 pg (25.0-34.0); Mean Corpuscular Volume 84.5 fL (80.0-100.0); Mean Platelet Volume 9.7 fL (9.4-12.4); Platelet Count 186 K/uL (130-400); RDW Coefficient of Variation 12.9 % (11.5-14.5); RDW Standard Deviation 39.6 fL (36.4-46.3); White Blood Count 4.58 K/ul (4.8-10.8)
[2024-01-10 06:52] LABS: BUN Creatinine Ratio 18.2 (10-20); Calcium 9.5 mg/dl (8.6-10.3); Potassium 3.7 mmol/L (3.5-5.1)
[2024-01-10 07:08] LABS: ALC (manual) 1.37 K/uL (1.2-3.4); ANC (manual) 2.66 K/uL (1.4-6.5); Basophils # (manual) 0.09 K/uL (0-0.2); Basophils % (manual) 2 %; Lymphocytes # (manual) 0.73 K/uL (1.2-3.4); Lymphocytes % (manual) 16 %; Monocytes # (manual) 0.46 K/uL (0.11-0.59); Monocytes % (manual) 10 %; Neutrophils # (manual) 2.66 K/uL (1.40-6.50); Neutrophils % (manual) 58 %; Reactive Lymphocytes # (manual) 0.64 K/uL; Reactive Lymphocytes % (manual) 14 %
--- NOTE | 2024-01-10 07:57 | Hospitalist Progress Note ---
Date of Service January 10, 2024 Assessment & Plan (1) Neurological symptoms: Yadi Bunch is a 23y/o M with no significant PMHx who presented to the ED via EMS for evaluation of leg weakness and right-sided facial numbness. 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 Also reported right-sided facial droop. RVP negative. Lyme negative. EKG w/o ischemic changes, sinus tachycardia noted. Chest x-rayno acute finding CT head without contrastno acute intracranial hemorrhage, territorial infarction or acute intracranial disease Brain MRI, cervical spine MRI and thoracic spine MRIno acute findings CSF analysis with elevated total protein of 136.6, normal WBC count. Neurology consulted Additional work-up recommendations from neurology: * CMV titers pending. EBV titers pending. * Serum anti-GM1 IgG and anti-GD1a antibodies pending. * on empiric tx with IVIG 0.4gm/kg per day x 5 days as per Neurology( Started on 01/08/2024) * Also started on Prednisone for possible Gray's palsy, 60mg X 3 days--> 40mg X 3days and 20mg X 3 days. Continuous monitoring for respiratory distress, dysautonomia. increased iv fluids rate to 100cc/hr as his heart rate persistently is elevated. 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 Monitor Prediabetes HbA1c 5.7% Continue lifestyle measures DVT Prophylaxis: SCDs/TEDs for now. Code Status: FULL CODE PCP: Alyssia Murray MD Disposition: Admit to PCU/Telemetry Discussed with patient's dad at bedside. Answered questions/queries. Time spent evaluating patient, direct bedside care, chart review, placing orders, interpretation of diagnostic studies, discussion with consultants, patient, and family members, as well as other required patient management activities is 50 minutes This chart was completed in part utilizing Speech Voice Recognition Software. Grammatical errors, random word insertions, pronoun errors, and incomplete sentences are an occasional consequence of this system due to software limitations, ambient noise, and hardware issues. Any formal questions or concerns about the content, text, or information contained within the body of this dictation should be directly addressed to the provider for clarification. Admission and Anticipated Discharge Date Admission Date: January 08, 2024 Subjective Patient seen and examined at bedside He is comfortable; not in distress Right-sided facial palsy persist Denies any other new neurological symptoms; feels slight more steady on his feet Review of Systems Review of Systems: All systems reviewed & are unremarkable except as noted in Subjective Physical Exam Physical Exam: Constitutional: WD/WN, vitals as above, NAD, sitting up in bed, pleasant, conversing easily Respiratory: normal respiratory effort, lungs clear to auscultation, no wheeze, rales, rhonchi. Normal insp/exp effort, no accessory muscle use Cardiovascular: RRR, no murmur, no edema Vessels: no JVD or carotid bruit Chest: normal inspection of chest Abdomen: normal bowel sounds, soft, nontender, no hepatosplenomegaly Musculoskeletal: no cyanosis or clubbing, extremities motor strength 5/5 Skin: no rashes, warm and dry normal turgor Neurologic: PERRL, EOMI, accommodation nl, Right sided facial nerve palsy, strength intact in b/l LE and UE Psychiatric: A+Ox3, euthymic affec Results & Data Results & Data Vital Signs (Past 12 Hours) Vital Signs Temp Pulse Pulse Resp BP BP Pulse Ox 01/10/24 07:10 37.0 C 121 H 18 123/70 96 01/10/24 03:10 36.8 C 113 H 20 129/76 96 01/09/24 22:40 36.7 C 104 H 18 146/78 H 96 01/09/24 22:00 114 H O2 Del Method 01/10/24 07:10 Room Air 01/10/24 03:10 Room Air 01/09/24 22:40 Room Air 01/09/24 22:00
[2024-01-10 08:27] LABS: Albumin Level 4.2 gm/dl (3.4-5.0); Bilirubin Direct 0.2 mg/dl (0-0.2); Bilirubin,Total 0.6 mg/dl (0.2-1.0); Total Protein 8.8 gm/dl (6.0-8.3)
[2024-01-10] MEDS: HEPARIN SOD 5,000 UNIT/0.5 ML VIAL SQ SCH (21:00)
--- NOTE | 2024-01-11 07:59 | Hospitalist Progress Note ---
Date of Service January 11, 2024 Assessment & Plan (1) Neurological symptoms: Yadi Bunch is a 23y/o M with no significant PMHx who presented to the ED via EMS for evaluation of leg weakness and right-sided facial numbness. 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 Also reported right-sided facial droop. RVP negative. Lyme negative. EKG w/o ischemic changes, sinus tachycardia noted. Chest x-rayno acute finding CT head without contrastno acute intracranial hemorrhage, territorial infarction or acute intracranial disease Brain MRI, cervical spine MRI and thoracic spine MRIno acute findings CSF analysis with elevated total protein of 136.6, normal WBC count. Neurology consulted Additional work-up recommendations from neurology: * CMV titers pending. EBV titers pending. * Serum anti-GM1 IgG and anti-GD1a antibodies pending. * on IVIG 0.4gm/kg per day x 5 days as per Neurology( Started on 01/08/2024) * Also started on Prednisone for possible Gray's palsy, 60mg X 3 days--> 40mg X 3days and 20mg X 3 days. Continuous monitoring for respiratory distress, dysautonomia. Continue iv fluids rate to 100cc/hr as his heart rate persistently is elevated. 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 Monitor Prediabetes HbA1c 5.7% Continue lifestyle measures DVT Prophylaxis: heparin Code Status: FULL CODE PCP: Alyssia Murray MD Disposition: Admit to PCU/Telemetry Discussed with patient's parents at bedside. Answered questions/queries. This chart was completed in part utilizing Speech Voice Recognition Software. Grammatical errors, random word insertions, pronoun errors, and incomplete sentences are an occasional consequence of this system due to software limitations, ambient noise, and hardware issues. Any formal questions or concerns about the content, text, or information contained within the body of this dictation should be directly addressed to the provider for clarification. Admission and Anticipated Discharge Date Admission Date: January 08, 2024 Subjective Patient seen and examined at bedside. Patient gait much more stable. No significant event overnight Telemetry shows elevated heart rate; patient denies palpitation, chest pain, dizziness or shortness of breath. Review of Systems Review of Systems: All systems reviewed & are unremarkable except as noted in Subjective Physical Exam Physical Exam: Constitutional: WD/WN, vitals as above, NAD, sitting up in bed, pleasant, conversing easily Respiratory: normal respiratory effort, lungs clear to auscultation, no wheeze, rales, rhonchi. Normal insp/exp effort, no accessory muscle use Cardiovascular: RRR, no murmur, no edema Vessels: no JVD or carotid bruit Chest: normal inspection of chest Abdomen: normal bowel sounds, soft, nontender, no hepatosplenomegaly Musculoskeletal: no cyanosis or clubbing, extremities motor strength 5/5 Skin: no rashes, warm and dry normal turgor Neurologic: PERRL, EOMI, accommodation nl, Right sided facial nerve palsy, strength intact in b/l LE and UE. Gait- steady, no signs of imbalance. Psychiatric: A+Ox3, euthymic affec Results & Data Results & Data Vital Signs (Past 12 Hours) Vital Signs Temp Pulse Pulse Resp BP BP Pulse Ox 01/11/24 07:49 37.3 C 115 H 18 137/83 96 01/11/24 04:32 36.7 C 99 H 18 126/76 96 01/10/24 23:43 36.7 C 101 H 16 121/71 96 01/10/24 22:00 100 H O2 Del Method 01/11/24 07:49 Room Air 01/11/24 04:32 Room Air 01/10/24 23:43 Room Air 01/10/24 22:00
[2024-01-11 08:10] LABS: Basophils # (auto) 0.02 K/uL (0.00-0.20); Basophils % (auto) 0.4 %; Immature Granulocytes # (auto) 0.02 K/uL (0.01-0.20); Immature Granulocytes % (auto) 0.4 %; Lymphocytes # (auto) 2.18 K/uL (1.20-3.40); Lymphocytes % (auto) 42.1 %; Mean Corpuscular Hemoglobin 28.5 pg (25.0-34.0); Mean Corpuscular Hgb Conc 33.3 g/dL (32.0-36.0); Mean Corpuscular Volume 85.6 fL (80.0-100.0); Monocytes % (auto) 9.7 %; Neutrophils # (auto) 2.46 K/uL (1.40-6.50); Neutrophils % (auto) 47.4 %; Platelet Count 182 K/uL (130-400); RDW Coefficient of Variation 13.2 % (11.5-14.5); RDW Standard Deviation 40.9 fL (36.4-46.3); White Blood Count 5.18 K/ul (4.8-10.8)
[2024-01-11 08:26] LABS: BUN Creatinine Ratio 20.8 (10-20); Calcium 9.4 mg/dl (8.6-10.3); Potassium 3.4 mmol/L (3.5-5.1)
[2024-01-11 08:57] LABS: Babesia microti DNA Not Detected (Not Detected)
[2024-01-11] MEDS: POLYETHYLENE (MIRALAX) 17 GM PACK PO PRN (09:30)
[2024-01-11] MEDS: ACETAMINOPHEN 325 MG TAB PO PRN (09:47)
[2024-01-11] MEDS: POTASSIUM CHLORIDE CRTAB 20 MEQ TABCR PO STA (13:23)
[2024-01-11] MEDS: LACTATED RINGER'S 1,000 ML IV SCH (13:23)
--- NOTE | 2024-01-11 14:21 | Neurology Progress Note ---
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 pt however having now left face weakness setting in. no swallowing problem. Results & Data Vital Signs (Past 12 Hours) Vital Signs Temp Pulse Pulse Resp BP BP Pulse Ox 01/11/24 11:21 37.0 C 102 H 18 120/76 97 01/11/24 10:07 97 H 01/11/24 07:49 37.3 C 115 H 18 137/83 96 01/11/24 04:32 36.7 C 99 H 18 126/76 96 O2 Del Method 01/11/24 11:21 Room Air 01/11/24 10:07 01/11/24 07:49 Room Air 01/11/24 04:32 Room Air Exam (Neuro) Physical Exam: Neuro: Mental: AOx4, fluent speech, normal comprehension, no apraxia, no neglect CN: PERRL, Full EOM, b/l face weakness with rt greater than left, midline T/U/P Motor: No abnormal movements, 5/5 t/o bilaterally lower ext. Coord: intact grossly DTR: trace b/l leg t/o. Impression: 23 yo male with GBS with now b/l facial nerve palsy with House- Brackmann scale of rt side V and left side IV. His leg strength is essentially back to normal. Unfortunately, he now has b/l gray's palsy. Gray's palsy is common finding in GBS pts and usually bilateral in GBS pts. it is reported about 50% of GBS pts can develop gray's palsy. Recommendations: -continue finishing steroid finishing IVIG therapy continue supportive care. no clear sign of corticobulbar weakness at this point. will follow. Chart reviewed I have spent more than 50% educating patient about potential diagnosis and neurological evaluation and coordinating care with patient's treatment team. Total time spent (including chart review and coordination of care): 35 min (this includes chart review). 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
[2024-01-12 06:49] LABS: Basophils # (auto) 0.01 K/uL (0.00-0.20); Basophils % (auto) 0.2 %; Eosinophils # (auto) 0.01 K/uL (0.00-0.50); Eosinophils % (auto) 0.2 %; Immature Granulocytes # (auto) 0.01 K/uL (0.01-0.20); Immature Granulocytes % (auto) 0.2 %; Lymphocytes % (auto) 49.3 %; Mean Corpuscular Hemoglobin 28.9 pg (25.0-34.0); Mean Corpuscular Hgb Conc 33.8 g/dL (32.0-36.0); Mean Corpuscular Volume 85.6 fL (80.0-100.0); Mean Platelet Volume 9.5 fL (9.4-12.4); Monocytes # (auto) 0.48 K/uL (0.11-0.59); Monocytes % (auto) 11.3 %; Neutrophils # (auto) 1.65 K/uL (1.40-6.50); Neutrophils % (auto) 38.8 %; Platelet Count 186 K/uL (130-400); RDW Coefficient of Variation 12.8 % (11.5-14.5); RDW Standard Deviation 39.5 fL (36.4-46.3); White Blood Count 4.26 K/ul (4.8-10.8)
[2024-01-12 07:26] LABS: Albumin Level 3.8 gm/dl (3.4-5.0); BUN Creatinine Ratio 21.9 (10-20); Bilirubin Direct 0.1 mg/dl (0-0.2); Bilirubin,Total 0.9 mg/dl (0.2-1.0); Calcium 9.2 mg/dl (8.6-10.3); Potassium 3.9 mmol/L (3.5-5.1); Total Protein 9.1 gm/dl (6.0-8.3)
[2024-01-12] MEDS ORDERED: predniSONE 20 MG TAB PO SCH (09:00)
--- NOTE | 2024-01-12 09:28 | Neurology Progress Note ---
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 b/l gray's palsy about the same. leg essentially back to baseline. no respiratory distress. Results & Data Vital Signs (Past 12 Hours) Vital Signs Temp Pulse Pulse Resp BP BP Pulse Ox 01/12/24 07:00 36.8 C 93 H 18 126/82 96 01/12/24 03:38 37.1 C 91 H 16 108/68 97 01/11/24 22:30 37.1 C 105 H 20 113/70 96 01/11/24 21:42 100 H O2 Del Method 01/12/24 07:00 Room Air 01/12/24 03:38 Room Air 01/11/24 22:30 Room Air 01/11/24 21:42 Exam (Neuro) Physical Exam: Neuro: Mental: AOx4, fluent speech, normal comprehension, no apraxia, no neglect CN: PERRL, Full EOM, b/l face weakness with rt greater than left, midline T/U/P Motor: No abnormal movements, 5/5 t/o bilaterally lower ext. Coord: intact grossly DTR: trace b/l leg t/o. Impression: 23 yo male with GBS with now b/l facial nerve palsy with House- Brackmann scale of rt side V and left side IV. His leg strength is essentially back to normal. Unfortunately, he now has b/l gray's palsy. Gray's palsy is common finding in GBS pts and usually bilateral in GBS pts. it is reported about 50% of GBS pts can develop gray's palsy. Pt overall stable and appears to reached deangelo. Recommendations: -today is day 5/5 of IVIG. continue supportive care. no clear sign of corticobulbar weakness at this point. eye protection. pt maybe able to go home if continues to do well on 2 days (Friday). Chart reviewed I have spent more than 50% educating patient about potential diagnosis and neurological evaluation and coordinating care with patient's treatment team. Total time spent (including chart review and coordination of care): 35 min (this includes chart review). 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
--- NOTE | 2024-01-12 10:50 | Hospitalist Progress Note ---
Date of Service January 12, 2024 Assessment & Plan (1) Neurological symptoms: Yadi Bunch is a 23y/o M with no significant PMHx who presented to the ED via EMS for evaluation of leg weakness and right-sided facial numbness. Guillain-[place] Syndrome B/L Facial nerve Palsy ( right > Left) Patient presented to the ED with complaints of increasing trouble walking for last couple of days. Also reported right-sided facial droop. RVP negative. Lyme negative. EKG w/o ischemic changes, sinus tachycardia noted. Chest x-rayno acute finding CT head without contrastno acute intracranial hemorrhage, territorial infarction or acute intracranial disease Brain MRI, cervical spine MRI and thoracic spine MRIno acute findings CSF analysis with elevated total protein of 136.6, normal WBC count. Neurology consulted Additional work-up recommendations from neurology: * CMV titers pending. EBV titers pending. * Serum anti-GM1 IgG and anti-GD1a antibodies pending. * on IVIG 0.4gm/kg per day x 5 days as per Neurology( Started on 01/08/2024) * Also started on Prednisone for possible b/l Gray's palsy, 60mg X 3 days--> 40mg X 3days and 20mg X 3 days. Continuous monitoring for respiratory distress, dysautonomia. Continue iv fluids rate to 80cc/hr as his heart rate persistently is elevated. monitor on telemetry Continue PT/OT Speech therapy evaluation done- on regular diet Continue eye protection. 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 Monitor Prediabetes HbA1c 5.7% Continue lifestyle measures DVT Prophylaxis: heparin Code Status: FULL CODE PCP: Alyssia Murray MD Disposition: Admit to PCU/Telemetry Discussed with patient's mother at bedside. Answered questions/queries. This chart was completed in part utilizing Speech Voice Recognition Software. Grammatical errors, random word insertions, pronoun errors, and incomplete sentences are an occasional consequence of this system due to software limit ations, ambient noise, and hardware issues. Any formal questions or concerns about the content, text, or information contained within the body of this dictation should be directly addressed to the provider for clarification. Admission and Anticipated Discharge Date Admission Date: January 08, 2024 Subjective Patient seen and examined at bedside. He feels steady on his feet Reports weakness on left side of the face as well Vitals are stable; no significant events overnight Review of Systems Review of Systems: All systems reviewed & are unremarkable except as noted in Subjective Physical Exam Physical Exam: Constitutional: WD/WN, vitals as above, NAD, sitting up in bed, pleasant, co nversing easily Respiratory: normal respiratory effort, lungs clear to auscultation, no wheeze, rales, rhonchi. Normal insp/exp effort, no accessory muscle use Cardiovascular: RRR, no murmur, no edema Vessels: no JVD or carotid bruit Chest: normal inspection of chest Abdomen: normal bowel sounds, soft, nontender, no hepatosplenomegaly Musculoskeletal: no cyanosis or clubbing, extremities motor strength 5/5 Skin: no rashes, warm and dry normal turgor Neurologic: PERRL, EOMI, accommodation nl, b/l facial nerve palsy( right> left), strength intact in b/l LE and UE. Gait- steady, no signs of imbalance. Psychiatric: A+Ox3, euthymic affec Results & Data Results & Data Vital Signs (Past 12 Hours) Vital Signs Temp Pulse Resp BP Pulse Ox O2 Del Method 01/12/24 07:00 36.8 C 93 H 18 126/82 96 Room Air 01/12/24 03:38 37.1 C 91 H 16 108/68 97 Room Air
[2024-01-12] MEDS: LACTATED RINGER'S 1,000 ML IV SCH (12:46)
[2024-01-12 15:07] LABS: CMV IgG Antibody <0.60 U/mL; CMV IgM Antibody <30.00 AU/mL; EBV Nuclear Ag Antibody <18.00 U/mL; Epstein Barr Virus Early Ag Ab >150.00 U/mL
[2024-01-12 19:23] VITALS: RESP 18
[2024-01-12 22:50] VITALS: O2SAT 98
[2024-01-13 00:06] VITALS: PULSE 88
[2024-01-13 02:51] VITALS: TEMP 98.2
[2024-01-13 07:45] LABS: Hemoglobin 12.6 g/dl (12.0-16.0); Mean Corpuscular Hemoglobin 29.9 pg (25.0-34.0); Mean Corpuscular Volume 82.9 fL (80.0-100.0); Mean Platelet Volume 9.8 fL (9.4-12.4); Platelet Count 212 K/uL (130-400); RDW Coefficient of Variation 12.9 % (11.5-14.5); RDW Standard Deviation 38.8 fL (36.4-46.3); Red Blood Count 4.22 M/uL (4.20-5.40); White Blood Count 5.27 K/ul (4.8-10.8)
[2024-01-13 08:11] LABS: Basophils # (auto) 0.03 K/uL (0.00-0.20); Basophils % (auto) 0.6 %; Eosinophils # (auto) 0.01 K/uL (0.00-0.50); Eosinophils % (auto) 0.2 %; Immature Granulocytes # (auto) 0.02 K/uL (0.01-0.20); Immature Granulocytes % (auto) 0.4 %; Lymphocytes # (auto) 2.79 K/uL (1.20-3.40); Lymphocytes % (auto) 52.9 %; Monocytes # (auto) 0.56 K/uL (0.11-0.59); Monocytes % (auto) 10.6 %; Neutrophils # (auto) 1.86 K/uL (1.40-6.50); Neutrophils % (auto) 35.3 %
[2024-01-13 08:13] LABS: Albumin Globulin Ratio 0.6 (0.9-2); Albumin Level 3.8 gm/dl (3.4-5.0); BUN Creatinine Ratio 25.6 (10-20); Bilirubin,Total 1.2 mg/dl (0.2-1.0); Calcium 9.3 mg/dl (8.6-10.3); Creatinine Clr Calc Pharmacy 126.7 ml/min; Est GFR (African American) 122.5 ml/min; Est GFR (Non-African American) 105.7 ml/min; Globulin 5.9 gm/dl (2.5-4.0); Potassium 3.8 mmol/L (3.5-5.1); Total Protein 9.7 gm/dl (6.0-8.3)
--- NOTE | 2024-01-13 09:05 | Hospitalist Progress Note ---
Date of Service January 13, 2024 Assessment & Plan (1) Neurological symptoms: Yadi Bunch is a 23y/o M with no significant PMHx who presented to the ED via EMS for evaluation of leg weakness and right-sided facial numbness. 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 Also reported right-sided facial droop. RVP negative. Lyme negative. EKG w/o ischemic changes, sinus tachycardia noted. Chest x-rayno acute finding CT head without contrastno acute intracranial hemorrhage, territorial infarction or acute intracranial disease Brain MRI, cervical spine MRI and thoracic spine MRIno acute findings CSF analysis with elevated total protein of 136.6, normal WBC count. Neurology consulted Additional work-up recommendations from neurology: * CMV titers negative. EBV titers positive; reach out to ID regarding interpretation of the result. * Serum anti-GM1 IgG and anti-GD1a antibodies pending. * Completed IVIG 0.4gm/kg per day x 5 days as per Neurology( 01/08/2024- 01/12/2024)) * Also started on Prednisone for possible b/l Gray's palsy, 60mg X 3 days--> 40mg X 3days and 20mg X 3 days. Continuous monitoring for respiratory distress, dysautonomia. Continue iv fluids rate to 80cc/hr as his heart rate persistently is elevated. monitor on telemetry Continue PT/OT Speech therapy evaluation done- on regular diet Continue eye protection. Neurology recommends possible discharge tomorrow depending on clinical improvement. 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 Monitor Prediabetes HbA1c 5.7% Continue lifestyle measures DVT Prophylaxis: heparin Code Status: FULL CODE PCP: Alyssia Murray MD Disposition: Admit to PCU/Telemetry This chart was completed in part utilizing Speech Voice Recognition Software. Grammatical errors, random word insertions, pronoun errors, and incomplete sentences are an occasional consequence of this system due to software limitations, ambient noise, and hardware issues. Any formal questions or concerns about the content, text, or information contained within the body of this dictation should be directly addressed to the provider for clarification. Admission and Anticipated Discharge Date Admission Date: January 08, 2024 Subjective Patient seen and examined at bedside He is comfortable; not in distress No new neurological symptoms Review of Systems Review of Systems: All systems reviewed & are unremarkable except as noted in Subjective Physical Exam Physical Exam: Constitutional: WD/WN, vitals as above, NAD, sitting up in bed, pleasant, conversing easily Respiratory: normal respiratory effort, lungs clear to auscultation, no wheeze, rales, rhonchi. Normal insp/exp effort, no accessory muscle use Cardiovascular: RRR, no murmur, no edema Vessels: no JVD or carotid bruit Chest: normal inspection of chest Abdomen: normal bowel sounds, soft, nontender, no hepatosplenomegaly Musculoskeletal: no cyanosis or clubbing, extremities motor strength 5/5 Skin: no rashes, warm and dry normal turgor Neurologic: PERRL, EOMI, accommodation nl, b/l facial nerve palsy( right> left), strength intact in b/l LE and UE. Gait- steady, no signs of imbalance. Psychiatric: A+Ox3, euthymic affec Results & Data Results & Data Vital Signs (Past 12 Hours) Vital Signs Temp Pulse Pulse Resp BP Pulse Ox O2 Del Method 01/13/24 02:50 36.8 C 88 18 110/67 98 Room Air 01/13/24 00:00 88 01/12/24 22:49 36.9 C 98 H 18 106/66 98 Room Air
[2024-01-13] MEDS ORDERED: LACTATED RINGER'S 1,000 ML IV SCH (09:15)
--- NOTE | 2024-01-13 09:28 | Neurology Progress Note ---
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 no weakness. still b/l gray's palsy. Results & Data Vital Signs (Past 12 Hours) Vital Signs Temp Pulse Pulse Resp BP Pulse Ox O2 Del Method 01/13/24 02:50 36.8 C 88 18 110/67 98 Room Air 01/13/24 00:00 88 01/12/24 22:49 36.9 C 98 H 18 106/66 98 Room Air Exam (Neuro) Physical Exam: Neuro: Mental: AOx4, fluent speech, normal comprehension, no apraxia, no neglect CN: PERRL, Full EOM, b/l face weakness with rt greater than left, midline T/U/P Motor: No abnormal movements, 5/5 t/o bilaterally lower ext. Coord: intact grossly DTR: trace b/l leg t/o. Impression: 23 yo male with GBS with now b/l facial nerve palsy with House- Brackmann scale of rt side V and left side IV. His leg strength is essentially back to normal. Unfortunately, he now has b/l gray's palsy. Gray's palsy is common finding in GBS pts and usually bilateral in GBS pts. it is reported about 50% of GBS pts can develop gray's palsy. Pt overall stable and appears to reached deangelo and improving from GBS stand point. finished IVIG Recommendations: ok to be discharged today as pt desires. f/u with me in clinic in about a month by calling the clinic any new symptoms, return to ED finish steroid huy. eye protection. Chart reviewed I have spent more than 50% educating patient about potential diagnosis and neurological evaluation and coordinating care with patient's treatment team. Total time spent (including chart review and coordination of care): 35 min (this includes chart review). 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
[2024-01-13 12:05] VITALS: BP 113/70
--- NOTE | 2024-01-13 15:07 | Discharge Summary ---
Date of Service January 13, 2024 Admission HPI Per Admitting Provider Didier Bunch is a 23y/o transgender M with no significant PMHx who presented to the ED via EMS for evaluation of leg weakness and right-sided facial numbness. History obtained from patient, discussion with ED provider/specialist and associated chart review. According to Dr. Patterson, patient was experiencing significant ambulatory difficulty as a result of increasing b/l leg weakness. Also with right-sided facial numbness that started today. 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 Patterson at time of sign-out. [facility] Neurology was therefore consulted by Dr. Patterson prior to sign-out --> Dr. Tobias saw and evaluated the patient in the ED. He is agreeable that this patient's presentation is certainly concerning for GBS. Lumbar puncture was therefore ordered and performed in the ED. Will ultimately proceed with further work-up as outlined in the plan to either rule-in or rule- out GBS. Patient seen with Dr. Mejia. Patient's father present as bedside. Patient reports feeling "fatigue" in his legs on Friday. Also had a headache. Has been experiencing significant progressive difficulty with walking. Numbness/tingling in both legs distally from the thigh region. Woke up this morning with right- sided facial numbness. No chest pain, SOB or cough. No abdominal pain or N/V. No reported fevers. Has never had any symptoms like this before. No smoking history. Patient is transgender - currently on testosterone therapy. Not on any other medications. Rare alcohol use. No recreational drug use. No recent diarrhea or viral illness. No recent vaccinations or travel. Admission Exam Per Admitting Provider Vitals signs as noted above General Appearance:Moderately built and nourished, no apparent distress Head: normocephalic, Atraumatic Eyes: normal inspection, EOMI Neck: supple, Trachea midline Respiratory/Chest: Normal breath sounds, CTA, No accessory muscle use Cardiovascular: S1, S2, No murmur Abdomen/GI:Soft, Non tender, Bowel sounds present Extremities/Musculoskeletal:normal inspection, no edema Neurologic/Psych:AAOX3, right facial droop, otherwise grossly no focal neurological deficits Skin: normal color, warm Principal Diagnosis Guillain-Beatty syndrome Bilateral facial nerve palsy Discharge Exam Constitutional: WD/WN, vitals as above, NAD, sitting up in bed, pleasant, conversing easily Respiratory: normal respiratory effort, lungs clear to auscultation, no wheeze, rales, rhonchi. Normal insp/exp effort, no accessory muscle use Cardiovascular: RRR, no murmur, no edema Vessels: no JVD or carotid bruit Chest: normal inspection of chest Abdomen: normal bowel sounds, soft, nontender, no hepatosplenomegaly Musculoskeletal: no cyanosis or clubbing, extremities motor strength 5/5 Skin: no rashes, warm and dry normal turgor Neurologic: PERRL, EOMI, accommodation nl, b/l facial nerve palsy( right> left), strength intact in b/l LE and UE. Gait- steady, no signs of imbalance. Psychiatric: A+Ox3, euthymic affec Discharge Data Allergies Allergy/AdvReac Type Severity Reaction Status Date / Time No Known Allergies Allergy Verified 01/12/24 14:57 Consultations 01/08/24 10:32 Consult Neurology Stat 01/08/24 11:16 ED Decision to Admit Stat Ordered Studies 01/08/24 10:02 CT head/brain wo con Stat 01/08/24 11:34 MRI Brain [MR brain wo/w con] Stat MRI Cervical [MR cervical spine wo/w con] Stat MRI Thoracic [MR thoracic spine wo/w con] Stat 01/10/24 08:00 US liver Routine Hospital Course (1) Neurological symptoms: Yadi Bunch is a 23y/o M with no significant PMHx who presented to the ED via EMS for evaluation of leg weakness and right-sided facial numbness. Guillain-Fairchild Syndrome B/L Facial nerve Palsy ( right > Left) Patient presented to the ED with complaints of increasing trouble walking for last couple of days. Also reported right-sided facial droop. Patient underwent Brain MRI, cervical spine MRI and thoracic spine MRI; didn't no acute findings CSF analysis with elevated total protein of 136.6, normal WBC count; concerning for Guillian Fairchild Syndrome Neurology consulted; was started on IVIG for GBS syndrome Patient reported gradual onset of facial nerve palsy on left side as well. He was started on Prednisone for possible Gray's palsy Over the course of hospitalization, patient's b/l LE weakness improved and return to baseline on the day of discharge.He had slight improvement on b/l facial nerve palsy on the right side. EBV serology was positive. Other infectious work up was negative. Patient discharged on oral steroids. Patient provided script of outpatient PT/OT Instruction regarding eye protection also given Patient to follow up with PCP to follow up on work up and Neurology in one month. Transaminitis Possibly due to Guillain-Beatty syndrome, testosterone injection Liver usg- no acute abnormality. Improvement note on liver enzymes. This chart was completed in part utilizing Speech Voice Recognition Software. Grammatical errors, random word insertions, pronoun errors, and incomplete sentences are an occasional consequence of this system due to software limitations, ambient noise, and hardware issues. Any formal questions or concerns about the content, text, or information contained within the body of this dictation should be directly addressed to the provider for clarification. 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 You are treated with intravenous immunoglobulins during the hospitalization. You are also evaluated for bilateral facial nerve palsy for which you are prescribed following medication: 1) Take prednisone 40 mg once a day for 2 more days, then take 20 mg once a day for 2 more days. Please follow-up with your primary care doctor. Please call [facility] neurology office for Dr. Khang Tobias to make an appointment with him in 1 month. Please continue to wear eye patch to protect your eye. Please use artificial teardrops every 1 to 2 hours during the day and ointment before going to sleep. Pending Studies at Discharge: No Stand-Alone Forms: My [facility] GuideWall, Work/School Release, Smoking Cessation Medications and DC Order Prescriptions: New prednisone 20 mg Tablet See Taper PO DAILY Qty: 7 0RF Taper: Taper, Blank 40 mg DAILY for 2 Days 20 mg DAILY for 3 Days Continued testosterone cypionate 100 mg/mL oil 100 mg subcut Q7D testosterone cypionate 200 mg/mL oil 80 mg subcut .[id number] Rx Instructions: Inject 80 mg subcutaneously once a week. Discharge Orders: Discharge Order (Routine); Ordered 01/13/24 Ordered By: Pete Pope Admission Data Admit Date/Time: 01/08/24 11:25 Attending Provider: Pete Pope Admit Provider: Bart Mejia Primary Care Provider: Alyssia Murray Other Providers: Khang Tobias; Bart Mejia Other Interventions: Discharge Summary Assessment (RN) Last Done: 01/13/24 12:04
[2024-01-14 14:09] LABS: Hematocrit (blood only) 43.9 % (37.0-47.0); Hemoglobin 14.7 g/dl (12.0-16.0); Red Blood Count 5.13 M/uL (4.20-5.40)
[2024-01-14 14:10] LABS: Est GFR (African American) 113.6 ml/min; Troponin I High Sensitivity 13.9 pg/ml (0-14)
[2024-01-14 14:12] LABS: Est GFR (Non-African American) 100.9 ml/min
[2024-01-14 14:13] LABS: Hematocrit (blood only) 40.7 % (37.0-47.0); Red Blood Count 4.83 M/uL (4.20-5.40)
[2024-01-14 14:14] LABS: Creatinine Clr Calc Pharmacy 128.4 ml/min; Est GFR (African American) 124.4 ml/min; Est GFR (Non-African American) 107.3 ml/min; Hematocrit (blood only) 40.3 % (37.0-47.0); Hemoglobin 13.7 g/dl (12.0-16.0); Red Blood Count 4.77 M/uL (4.20-5.40)
[2024-01-14 14:15] LABS: Hematocrit (blood only) 39.9 % (37.0-47.0); Hemoglobin 13.3 g/dl (12.0-16.0); Red Blood Count 4.66 M/uL (4.20-5.40)
[2024-01-14 14:16] LABS: Creatinine Clr Calc Pharmacy 135.4 ml/min; Est GFR (African American) 132.7 ml/min; Est GFR (Non-African American) 114.5 ml/min; Hemoglobin 12.5 g/dl (12.0-16.0); Red Blood Count 4.32 M/uL (4.20-5.40)
[2024-01-14 14:16] LABS: Creatinine Clr Calc Pharmacy 128.4 ml/min; Est GFR (African American) 124.4 ml/min; Est GFR (Non-African American) 107.3 ml/min
[2024-01-15] MEDS ORDERED: predniSONE 20 MG TAB PO SCH (09:00)
== END 2024-01-13 12:09 | disposition home or self-care (01) | DRG 96 ==
LOC: EDSEX → ED 09:53 → SUATTDRO 11:25 → MERGE 11:25 → 2S 11:25 → EDSEX 11:25 → 2S 13:27